=== PATIENT | female | born 1995 | race African-American/Black ===

== ENCOUNTER 2022-11-18 13:23 | Emergency (ER) | payer MEDICAID ==
[~2022-11-18] VITALS: Ht 172.7 cm; Wt 130.0 kg
[2022-11-18] MEDS ORDERED: KETOROLAC 30MG/ML VIAL IV STA (15:11)
[2022-11-18] MEDS ORDERED: DIPHENHYDRAMINE 50MG/ML VIAL IV ONE (15:15)
[2022-11-18] MEDS ORDERED: METOCLOPRAMIDE HCL 10MG/2ML VIAL IV ONE (15:15)
[2022-11-18] MEDS ORDERED: SODIUM CHLORIDE 0.9% 1,000 ML IV ONE (15:15)
[2022-11-18] MEDS ORDERED: HYDROCODONE/ACETAMINOPHEN 5/325MG TABLET PO ONE (19:30)
[2022-11-18 21:31] VITALS: BP 141/72
== END 2022-11-18 21:38 | disposition home or self-care (01) ==
LOC: ER 13:23
DX: G40.909 Epilepsy, unspecified, not intractable, without status epilepticus (principal); H53.141 Visual discomfort, right eye
CPT/HCPCS: 96361; 96374; 96375; 99285; J1200; J1885; J2765; J7030